=== PATIENT | male | born 1975 | race Caucasian/White ===

== ENCOUNTER 2019-02-16 14:38 | Emergency (ER) | payer OTHER ==
[2019-02-16 15:00] VITALS: BP 135/91
[2019-02-16] MEDS ORDERED: Tetan/Diph/Pertus SYR(Tdap)* 0.5 ML SYR(BOOSTRIX) use SYR IM ONE (15:14)
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
== END 2019-02-16 15:54 | disposition home or self-care (01) ==
LOC: UCCORT 14:38
DX: W13.2XXA Fall from, out of or through roof, initial encounter (principal); Y93.9 Activity, unspecified; Y92.9 Unspecified place or not applicable; Z88.2 Allergy status to sulfonamides
CPT/HCPCS: 90471; 90715; 99212; G0463

== ENCOUNTER 2019-07-06 07:09 | Emergency (ER) | payer OTHER ==
--- OUTSIDE RECORDS SUMMARY | 2019-07-06 07:14 | XMS REPORT | Continuity of Care Document ---
:1975 External Reference #:[id number] Author Name Juliette Mckeon MD Address [address] [place] [id number] Care Team Providers Name Role Phone Octavio Urias MD - Family Medicine Care Team Information [employer] Problems Active Problems Provider Date History and physical examination, Al Alejandre MD, FACS Onset: 2013 follow-up Carpal tunnel syndrome Al Alejandre MD, FACS Onset: 05/30/2014 Social History Type Date Description Comments Sex Unknown Tobacco Use Start: Unknown Never Smoked Cigarettes ETOH Use Denies alcohol use Tobacco Use Start: Unknown Patient has never smoked Recreational Drug Use Denies Drug Use Allergies, Adverse Reactions, Alerts Active Allergies Reaction Severity Comments Date Penicillin unknown 10/23/2012 Medications Description No Active Medications Immunizations Description No Information Available Vital Signs Date Vital Result Comment 06/19/2019 2:13pm BP Systolic Sitting Left Arm 134 mmHg BP Diastolic Sitting Left Arm 91 mmHg Body Temperature 97.4 F Heart Rate 71 /min Height 71.5 inches 5'11.50" Weight 206.00 lb BMI (Body Mass Index) 28.3 kg/m2 BSA (Body Surface Area) 2.15 m2 [place] body weight in kilograms 79 kg O2 % BldC Oximetry 98 % 05/30/2014 9:41am BP Systolic Sitting Left Arm 140 mmHg BP Diastolic Sitting Left Arm 92 mmHg Height 71.5 inches 5'11.50" Weight 193.00 lb BMI (Body Mass Index) 26.5 kg/m2 BSA (Body Surface Area) 2.09 m2 Results Description No Information Available Procedures Description No Information Available Medical Devices Description No Information Available Encounters Type Date Location Provider Dx Diagnosis Office Visit 06/19/2019 Orthopaedic Office Juliette Mckeon, G56.02 Carpal tunnel 2:15p MD syndrome, left upper limb Assessments Date Code Description Provider 06/19/2019 G56.02 Carpal tunnel syndrome, left upper limb Juliette Mckeon MD Plan of Treatment No Information Available Functional Status Description No Information Available Mental Status Description No Information Available Referrals Description No Information Available
[2019-07-06 07:21] VITALS: BP 143/78
--- NOTE | 2019-07-06 07:33 | UC ---
Respiratory Complaint HPI - HPI Summary HPI Summary: 43 yo non-smoker with 3 weeks of cough and congestion, with off and on shortness of breath and daily frontal headache. Feels fatigued, with off and on shortness of breath. Low grade fever off and on. - History of Current Complaint Chief Complaint: UCGeneralIllness Stated Complaint: CONGESTION Time Seen by Provider: 07/06/19 07:23 Hx Obtained From: Patient Onset/Duration: Gradual Onset, Lasting Weeks - 3 Timing: Constant Severity Initially: Moderate Severity Currently: Moderate Pain Intensity: 5 Character: Cough: Nonproductive Aggravating Factors: Exertion, Deep Breaths Alleviating Factors: Nothing - no relief from over the counter meds including mucinex Associated Signs And Symptoms: Positive: Dyspnea, Fever, URI, Nasal Congestion - Risk Factors Pulmonary Embolism Risk Factors: Negative Cardiac Risk Factors: Negative Pseudomonas Risk Factors: Negative Tuberculosis Risk Factors: Negative - Allergies/Home Medications Allergies/Adverse Reactions: Allergies Allergy/AdvReac Type Severity Reaction Status Date / Time Penicillins Allergy See Comment Verified 07/06/19 07:21 PMH/Surg Hx/FS Hx/Imm Hx Previously Healthy: Yes - Surgical History Surgical History: Yes Surgery Procedure, Year, and Place: appendectomy 2012 - Family History Known Family History: Positive: Diabetes - Social History Occupation: Employed Full-time Lives: With Family Alcohol Use: None Substance Use Type: None Smoking Status (MU): Never Smoked Tobacco - Immunization History Most Recent Tetanus Shot: unknown Review of Systems All Other Systems Reviewed And Are Negative: Yes Constitutional: Positive: Fever, Fatigue Skin: Positive: Negative Eyes: Positive: Negative ENT: Positive: Sore Throat, Nasal Discharge, Sinus Congestion, Sinus Pain/ Tenderness Respiratory: Positive: Shortness Of Breath - off and on, Cough Cardiovascular: Positive: Negative, Other - no hx of hypertension, has been taking dayquil and nyquil daily Gastrointestinal: Positive: Negative Genitourinary: Positive: Negative Motor: Positive: Negative Neurovascular: Positive: Negative Musculoskeletal: Positive: Negative Neurological: Positive: Headache Psychological: Positive: Negative Is Patient Immunocompromised?: No Physical Exam Triage Information Reviewed: Yes Appearance: No Pain Distress, Ill-Appearing - looks fatigued and unwell. Vital Signs: Initial Vital Signs Temp 98.7 F 07/06/19 07:16 Pulse 106 07/06/19 07:16 Resp 16 12/13/19 07:16 BP 143/78 07/06/19 07:16 Pulse Ox 98 07/06/19 07:16 Eye Exam: Normal ENT: Positive: Pharyngeal erythema - posterior, TM dull - bilateral serous fluid and mild erythema Neck: Positive: Supple, Nontender, No Lymphadenopathy Respiratory: Positive: Decreased breath sounds, Rhonchi - upper airway Cardiovascular: Positive: RRR, No Murmur Musculoskeletal Exam: Normal Neurological Exam: Normal Psychological Exam: Normal Skin Exam: Normal Respiratory Course/Dx - Course Course Of Treatment: Discussed sinus and bronchial symptoms. - Differential Dx/Diagnosis Differential Diagnosis/HQI/PQRI: Bronchitis, Lower Resp Infection, Sinusitis Provider Diagnosis: Sinusitis Discharge ED - Sign-Out/Discharge Documenting (check all that apply): Patient Departure All imaging exams completed and their final reports reviewed: No Studies - Discharge Plan Condition: Stable Disposition: HOME Prescriptions: Azithromyxin POLI (NF) [Z-Poli (Zithromax) 250 mg tabs #6] 2 tab PO .TODAY, THEN 1 DAILY #6 tab Patient Education Materials: Sinusitis (ED) Referrals: Octavio Urias MD [Primary Care Provider] - Additional Instructions: Take azithyromycin as treatment for sinusitis/bronchitis. Try use of over the counter flonase 2 sprays to both nostrils once daily should help to drain your sinuses and decrease cough. Follow up with your primary doctor if not improving. Your blood pressure today was elevated to 143/78--this is likely the result of the decongestants you have been taking, but please have your blood pressure re- checked within the next several weeks. - Billing Disposition and Condition Condition: STABLE Disposition: Home
== END 2019-07-06 07:50 | disposition home or self-care (01) ==
LOC: UCCORT 07:09
DX: J32.9 Chronic sinusitis, unspecified (principal); R05 Cough; R06.02 Shortness of breath; R53.83 Other fatigue; Z88.0 Allergy status to penicillin
CPT/HCPCS: 99212; G0463